=== PATIENT | male | born 1985 ===

== ENCOUNTER 2024-03-27 13:03 | Emergency (ER) | payer BC ==
[2024-03-27] MEDS ORDERED: Ondansetron 4 MG/2 ML SDV IVPUSH ONE (17:20)
[2024-03-27] MEDS ORDERED: Morphine 4 MG/ML Syringe IVPUSH ONE (17:20)
[2024-03-27] MEDS: ceFAZolin 1 GM Vial IM ONE (17:58)
[2024-03-27] MEDS: Morphine 4 MG/ML Syringe IM ONE (17:58)
[2024-03-27] MEDS: Diphtheria,Pertussis(Acell),Tetanus Vaccine 0.5 ML Syringe IM ONE (17:59)
[2024-03-27] MEDS: Ketorolac 60 MG/2 ML SDV IM ONE (18:00)
== END 2024-03-27 18:34 ==
LOC: JD.ED 13:03
DX: S62.633B Displaced fracture of distal phalanx of left middle finger, initial encounter for open fracture (principal); Z23 Encounter for immunization; W23.0XXA Caught, crushed, jammed, or pinched between moving objects, initial encounter; Y93.89 Activity, other specified; Y99.0 Civilian activity done for income or pay
CPT/HCPCS: 73140; 90471; 90715; 96372; 99284; J0690; J2270